=== PATIENT | male | born 1985 | race Two or more races ===

== ENCOUNTER 2021-09-16 11:40 | Emergency (ER) | payer BC, MEDICAID ==
[~2021-09-16] VITALS: Ht 167.6 cm; Wt 86.2 kg
[2021-09-16] MEDS ORDERED: PROM1SOL4 PO (15:43)
[2021-09-16] MEDS ORDERED: DOXY-286 PO (15:43)
[2021-09-16 15:49] VITALS: BP 103/69
== END 2021-09-16 15:55 | disposition home or self-care (01) ==
LOC: ER 11:40
DX: J20.9 Acute bronchitis, unspecified (principal); R07.89 Other chest pain
CPT/HCPCS: 71045; 93005